=== PATIENT | male | born 2000 | race Two or more races ===

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

== ENCOUNTER 2021-11-21 19:55 | Emergency (ER) | payer MEDICAID ==
[~2021-11-21] VITALS: Ht 172.7 cm; Wt 68.0 kg
[2021-11-21 20:32] VITALS: BP 138/76
--- NOTE | 2021-11-21 20:32 | NUR ---
BIBS C/O RECURRENT UTI AND YELLOW DISCHARGE.
[2021-11-21 22:03] LABS: BILIRUBIN,URINE NEGATIVE (NEGATIVE); COLOR,URINE YELLOW (YELLOW); LEUKOCYTE ESTERASE ,URINE NEGATIVE (NEGATIVE); NITRITE, URINE NEGATIVE (NEGATIVE); PROTEIN,URINE NEGATIVE (NEGATIVE); UGLUCOSE NEGATIVE (NEGATIVE)
[2021-11-21 22:32] LABS: BACTERIA,URINE Rare /HPF (None Seen); RBC,URINE 0-2 /HPF (0-2); SQUAMOUS EPITHELIAL CELL,UR Few /HPF (None Seen); WBC,URINE 0-2 /HPF (0-3)
[2021-11-21 22:33] LABS: MUCUS,URINE Few /LPF (None Seen)
[2021-11-21] MEDS ORDERED: DOXY-326 PO (22:46)
--- NOTE | 2021-11-22 00:59 | NUR ---
Patient discharged to home in stable condition. Written and verbal after care instructions given. Patient verbalizes understanding of instruction.
== END 2021-11-22 00:59 | disposition home or self-care (01) ==
LOC: ER 20:20
DX: N47.6 Balanoposthitis (principal); Z87.440 Personal history of urinary (tract) infections; J45.909 Unspecified asthma, uncomplicated; Z20.822 Contact with and (suspected) exposure to COVID-19
CPT/HCPCS: 99283; 87426; 81001; 82962; 87491; 87591; C9803